=== PATIENT | male | born 1985 | race Caucasian/White ===

== ENCOUNTER 2017-07-24 23:15 | Emergency (ER) | payer SELFPAY ==
[~2017-07-24] VITALS: Ht 182.9 cm; Wt 80.0 kg
[2017-07-24 23:17] VITALS: BP 156/98; PULSE 97; RESP 16; TEMP 98.2; O2SAT 97
[2017-07-24] MEDS ORDERED: SULFAMETHOXAZOLE-TRIMETHOPRIM DS 800-160 MG TAB PO ONE (23:45)
[2017-07-24] MEDS ORDERED: BACT800T5 PO (23:47)
[2017-07-24] MEDS ORDERED: MUPI2%T TOPICAL (23:47)
--- NOTE | 2017-07-24 23:47 | PD ---
HPI Chief Complaint: Bite or Sting Time Seen by Provider: 23:42 Travel History International Travel<30 days: No Contact w/Intl Traveler<30days: No Traveled to known affect area: No History of Present Illness HPI Patient comes in complaining of possible spider bite to his left calf a first noticed yesterday. Patient states it first started off as 2 small appearing pimples. Patient states he scratches them which caused them to rupture. Patient states he feels like it is getting worse. Patient has a lesion on chest he first noticed 3 days ago. Patient describes pain as a tenderness around the site. Denies any radiation of the pain. Denies anything making it better or worse. Denies any fevers or being around anyone else with similar. PFSH Past Medical History Medical History: Denies Significant Hx Diminished Hearing: No Tetanus Vaccination: < 5 Years Past Surgical History Ear Surgery: Yes (as a child) Social History Alcohol Use: No Tobacco Use: Yes Substance Use: No Allergies-Medications (Allergen,Severity, Reaction): Coded Allergies: No Known Allergies (Unverified Adverse Reaction, Unknown, 07/24/17) Reported Meds & Prescriptions Reported Meds & Active Scripts Active No Active Prescriptions or Reported Medications Review of Systems Except as stated in HPI: all other systems reviewed are Neg Physical Exam Narrative GENERAL: Well-developed, well nourished, in no acute distress, and non-ill appearing. SKIN: 2 small lesions in the left calf third noted on left chest wall anteriorly. There is yellow drainage with some crusting. Most consistent with impetigo. There is no fluctuation, induration, or crepitus. There is no streaking. HEAD: Atraumatic. Normocephalic. EYES: Pupils equal and round. EOMI. No scleral icterus. No injection or drainage. ENT: No nasal bleeding or discharge. Mucous membranes pink and moist. NECK: Trachea midline. Supple. No nuclear rigidity. RESPIRATORY: No accessory muscle use. No respiratory distress. MUSCULOSKELETAL: No obvious deformities. No clubbing. No cyanosis. No edema. Full range of motion. NEUROLOGICAL: Awake and alert. No obvious cranial nerve deficits. Motor grossly within normal limits. Normal speech. PSYCHIATRIC: Appropriate mood and affect; insight and judgment normal. Data Data Last Documented VS Vital Signs Date Time Temp Pulse Resp B/P (MAP) Pulse Ox O2 Delivery O2 Flow Rate FiO2 07/24/17 23:50 07/24/17 23:17 98.2 97 16 97 Room Air Orders Orders Sulfamet-Trimeth Ds 800-160 Mg (Bactrim (07/24/17 23:45) Wound Culture And Gram Stain (07/24/17 23:42) Ed Discharge Order (07/24/17 23:48) MDM Medical Decision Making Medical Screen Exam Complete: Yes Emergency Medical Condition: Yes Differential Diagnosis Abscess, cellulitis, impetigo, cellulitis, gangrene, other Narrative Course Patient in no obvious distress upon re-evaluation. Patient was asked if they wanted to speak to my attending, which the patient did not wish to do at this time. Any questions/concerns in reference to patient diagnosis/condition discussed and clarified prior to patient's discharge. Reinforced sheer importance of close follow up with patient's primary physician or primary care clinic. Instructed patient to return to ED immediately, if symptoms return/ worsen. Patient showed understanding of above instructions. Further instructions and recommendations were detailed in discharge paperwork. Patient ambulated without difficulty out of ED at discharge. Diagnosis Primary Impression: Impetigo Referrals: [facility] Patient Instructions: General Instructions, Impetigo (ED) Additional Instructions: Follow-up with your primary care physician this week for reevaluation. Take all medication as prescribed. Return to the emergency department if symptoms get worse. Med/Other Pt SpecificInfo: Prescription(s) given Scripts No Active Prescriptions or Reported Meds Disposition: 01 DISCHARGE HOME Condition: Stable Zaid Hamm Jul 24, 2017 23:47
== END 2017-07-25 00:16 | disposition home or self-care (01) ==
LOC: NEPD 23:15
DX: L01.00 Impetigo, unspecified (principal); Z72.0 Tobacco use
CPT/HCPCS: 86403; 87070; 99283